=== PATIENT | male | born 1960 | race Two or more races ===

== ENCOUNTER 2017-02-26 19:19 | Inpatient (IN) | payer MEDICARE, MEDICAID ==
[~2017-02-26] VITALS: Ht 121.9 cm; Wt 50.0 kg
[2017-02-26 22:47] LABS: CARBON DIOXIDE 16 mEq/L (21-32); CHLORIDE 120 mEq/L (98-107)
[2017-02-26 22:52] LABS: TROPONIN I < 0.02 ng/mL (0.00-0.04)
[2017-02-26] MEDS ORDERED: DEXTROSE 50% WATER 50ML SYRINGE IV ONE ×2 (22:56→23:00)
[2017-02-26] MEDS ORDERED: DEXT 5%/0.45% NACL KCL 20MEQ/L 1,000 ML IV ONE (22:58)
[2017-02-26 23:08] LABS: HEMATOCRIT. 25.1 % (42.0-52.0); HEMOGLOBIN. 8.6 g/dL (14.0-18.0); MEAN CORPUSCULAR HEMOGLOBIN 30.3 pg (28.0-32.0); MEAN CORPUSCULAR VOLUME 88.9 fL (80.0-94.0); MEAN PLATELET VOLUME 7.6 fl (7.4-10.4); PLATELET 189 x1000/uL (130-400); RED BLOOD CELL COUNT 2.83 mill/uL (4.7-6.1); RED CELL DISTRIBUTION WIDTH 19.9 % (11.6-14.6)
[2017-02-26 23:13] LABS: INR 1.2; PARTIAL THROMBOPLASTIN TIME 36.2 sec (24.0-34.0); PROTHROMBIN TIME 12.1 sec
[2017-02-26 23:25] LABS: PLATELET ESTIMATE NORMAL
[2017-02-26 23:57] LABS: CLARITY URINE CLOUDY (CLEAR); COLOR URINE YELLOW (YELLOW); GLUCOSE URINE NEGATIVE (NEGATIVE); KETONES URINE NEGATIVE (NEGATIVE); LEUKOCYTE ESTERASE URINE 1+ (NEGATIVE); NITRITE URINE NEGATIVE (NEGATIVE); OCCULT BLOOD URINE 3+ (NEGATIVE); PH URINE 5.5 (4.5-8.0); PROTEIN URINE 1+ (NEGATIVE); SPECIFIC GRAVITY URINE 1.016 (1.005-1.030); UROBILINOGEN URINE 0.2 E.U./dL (0.2-1.0)
[2017-02-27] VITALS (8 sets, daily range): BP systolic 98–131; BP diastolic 49–81
[2017-02-27] MEDS ORDERED: DEXTROSE 50% WATER 50ML SYRINGE IV ONE ×3 (01:45→06:00)
[2017-02-27] MEDS ORDERED: ACETAMINOPHEN 650MG SUPP PR PRN (08:45)
[2017-02-27] MEDS ORDERED: ONDANSETRON HCL 4MG/2ML VIAL IV PRN (08:45)
[2017-02-27] MEDS ORDERED: IPRATROPIUM/ALBUTEROL 0.5-3(2.5)MG/3ML NEB INH PRN (08:45)
[2017-02-27] MEDS: MVI, ADULT NO.1 10 ML in DEXT 5%/0.45% NACL 1000ML 1,000 ML IV SCH ×2 (11:32)
[2017-02-27 12:03] LABS: HEMOGLOBIN. 9.9 g/dL (14.0-18.0); MEAN CORPUSCULAR HEMOGLOBIN 30.7 pg (28.0-32.0); MEAN CORPUSCULAR VOLUME 87.1 fL (80.0-94.0); MEAN PLATELET VOLUME 7.9 fl (7.4-10.4); PLATELET 148 x1000/uL (130-400); RED BLOOD CELL COUNT 3.21 mill/uL (4.7-6.1); RED CELL DISTRIBUTION WIDTH 18.4 % (11.6-14.6)
[2017-02-27 13:19] LABS: PLATELET ESTIMATE NORMAL
[2017-02-27 13:22] LABS: GLUCOSE URINE NEGATIVE (NEGATIVE); KETONES URINE NEGATIVE (NEGATIVE); LEUKOCYTE ESTERASE URINE 1+ (NEGATIVE); NITRITE URINE NEGATIVE (NEGATIVE); OCCULT BLOOD URINE 3+ (NEGATIVE); PH URINE 5.5 (4.5-8.0); PROTEIN URINE 1+ (NEGATIVE); SPECIFIC GRAVITY URINE 1.014 (1.005-1.030); UROBILINOGEN URINE 0.2 E.U./dL (0.2-1.0)
[2017-02-27 13:24] LABS: CLARITY URINE CLEAR (CLEAR); COLOR URINE YELLOW (YELLOW)
[2017-02-27 13:40] LABS: *AMPHETAMINES SCREEN URINE NEGATIVE (NEGATIVE); *BARBITURATES SCREEN URINE NEGATIVE (NEGATIVE); *BENZODIAZEPINES SCREEN URINE NEGATIVE (NEGATIVE); *COCAINE SCREEN URINE NEGATIVE (NEGATIVE); CANNABINOID URINE SCREEN NEGATIVE (NEGATIVE); METHADONE URINE SCREEN NEGATIVE (NEGATIVE); OPIATES URINE SCREEN NEGATIVE (NEGATIVE); PHENCYCLIDINE URINE SCREEN NEGATIVE (NEGATIVE)
[2017-02-27] MEDS ORDERED: BACL-141 PO (16:11)
[2017-02-27] MEDS ORDERED: GABA-529 PO (16:11)
[2017-02-27] MEDS ORDERED: TRAM50TA3 PO (16:11)
[2017-02-27] MEDS ORDERED: GLUC1VIA6 IJ (16:11)
[2017-02-27] MEDS ORDERED: OMEP20CA10 PO (16:11)
[2017-02-27] MEDS ORDERED: CEPH-569 PO (16:11)
[2017-02-27] MEDS ORDERED: INSU3INS6 SUBCUT (16:11)
[2017-02-27] MEDS: TRAMADOL 50MG TABLET PO PRN (18:06)
[2017-02-27] MEDS: GABAPENTIN 100MG CAPSULE PO SCH (21:31)
[2017-02-27] MEDS: DEXT 5%/0.45% NACL 1000ML 1,000 ML IV SCH (23:00)
[2017-02-28] VITALS (12 sets, daily range): BP systolic 93–133; BP diastolic 62–99
[2017-02-28] MEDS: MVI, ADULT NO.1 10 ML in DEXT 5%/0.45% NACL 1000ML 1,000 ML IV SCH ×2 (03:07)
[2017-02-28 07:14] LABS: CHLORIDE 119 mEq/L (98-107); HDL CHOLESTEROL 27 mg/dL (40-59)
[2017-02-28 07:28] LABS: CARBON DIOXIDE 17 mEq/L (21-32); LDL CHOLESTEROL 21 mg/dL (5-100); PREALBUMIN 5.7 mg/dL (20.0-40.0); TOTAL IRON BINDING CAPACITY 85 ug/dL (250-450)
[2017-02-28 08:08] LABS: HEMATOCRIT. 27.8 % (42.0-52.0); HEMOGLOBIN. 9.5 g/dL (14.0-18.0); MEAN CORPUSCULAR HEMOGLOBIN 29.7 pg (28.0-32.0); MEAN CORPUSCULAR VOLUME 86.8 fL (80.0-94.0); MEAN PLATELET VOLUME 7.9 fl (7.4-10.4); PLATELET 161 x1000/uL (130-400); RED CELL DISTRIBUTION WIDTH 18.6 % (11.6-14.6)
[2017-02-28] MEDS: GABAPENTIN 100MG CAPSULE PO SCH ×2 (09:41→21:15)
[2017-02-28] MEDS: TRAMADOL 50MG TABLET PO PRN (10:10)
[2017-02-28] MEDS ORDERED: POTASSIUM PHOS,M-BASIC-D-BASIC 30 MMOL in DEXT 5% WATER 500 ML IV SCH (11:00)
[2017-02-28] MEDS ORDERED: MAGNESIUM 4 G PREMIX 100 ML IV SCH (11:00)
[2017-02-28 11:01] LABS: PLATELET ESTIMATE NORMAL
[2017-02-28] MEDS: MICONAZOLE NITRATE 2% OINT 71GM TOP SCH (18:04)
[2017-03-01] VITALS (15 sets, daily range): BP systolic 101–133; BP diastolic 68–83
[2017-03-01] MEDS: DEXT 5%/0.45% NACL 1000ML 1,000 ML IV SCH (01:03)
[2017-03-01] MEDS: MVI, ADULT NO.1 10 ML in DEXT 5%/0.45% NACL 1000ML 1,000 ML IV SCH ×6 (03:24→16:52)
[2017-03-01] MEDS: MICONAZOLE NITRATE 2% OINT 71GM TOP SCH ×2 (08:41→22:32)
[2017-03-01] MEDS: GABAPENTIN 100MG CAPSULE PO SCH ×2 (08:42→20:59)
[2017-03-01] MEDS: TRAMADOL 50MG TABLET PO PRN ×2 (08:50→20:58)
[2017-03-02] VITALS: BP 126/91
[2017-03-02 04:00] VITALS: BP 127/93
[2017-03-02 04:13] LABS: OVA & PARASITE EXAM Final report (.)
[2017-03-02] MEDS: DEXT 5%/0.45% NACL 1000ML 1,000 ML IV SCH ×3 (04:20→17:40)
[2017-03-02] MEDS: MVI, ADULT NO.1 10 ML in DEXT 5%/0.45% NACL 1000ML 1,000 ML IV SCH ×4 (06:20→20:11)
[2017-03-02 08:00] VITALS: BP 138/99
[2017-03-02] MEDS: GABAPENTIN 100MG CAPSULE PO SCH ×2 (09:52→20:16)
[2017-03-02] MEDS: MICONAZOLE NITRATE 2% OINT 71GM TOP SCH ×2 (09:53→20:18)
[2017-03-02] MEDS: TRAMADOL 50MG TABLET PO PRN ×2 (09:54→20:17)
[2017-03-02 12:00] VITALS: BP 113/81
[2017-03-02 16:00] VITALS: BP 132/97
[2017-03-02 20:12] VITALS: BP 136/96
[2017-03-03] VITALS: BP 129/99
[2017-03-03] MEDS: TRAMADOL 50MG TABLET PO PRN ×2 (03:46→15:12)
[2017-03-03 04:00] VITALS: BP 126/78
[2017-03-03 08:00] VITALS: BP 133/94
[2017-03-03] MEDS: GABAPENTIN 100MG CAPSULE PO SCH ×2 (08:49→21:34)
[2017-03-03] MEDS: DEXT 5%/0.45% NACL 1000ML 1,000 ML IV SCH ×2 (08:49→20:20)
[2017-03-03] MEDS: OMEPRAZOLE 20MG CAPSULE EXTENDED RELEASE PO SCH ×2 (08:49→21:33)
[2017-03-03] MEDS: MICONAZOLE NITRATE 2% OINT 71GM TOP SCH ×2 (08:50→21:34)
[2017-03-03] MEDS: MVI, ADULT NO.1 10 ML in DEXT 5%/0.45% NACL 1000ML 1,000 ML IV SCH ×4 (08:53→22:44)
[2017-03-03] MEDS ORDERED: POTASSIUM PHOS,M-BASIC-D-BASIC 30 MMOL in DEXT 5% WATER 500 ML IV ONE (09:00)
[2017-03-03] MEDS: POLYVINYL ALCOHOL OPHTH DROPS 15ML BOTHEYE SCH ×3 (11:49→17:30)
[2017-03-03 12:04] VITALS: BP 127/86
[2017-03-03] MEDS ORDERED: MAGNESIUM 4 G PREMIX 100 ML IV ONE (14:00)
[2017-03-03 16:00] VITALS: BP 123/79
[2017-03-03] MEDS: ALBUMIN HUMAN 25GM/100ML (25%) IV SCH (17:30)
[2017-03-03 20:00] VITALS: BP 126/91
[2017-03-04] VITALS: BP 108/73
[2017-03-04] MEDS: ALBUMIN HUMAN 25GM/100ML (25%) IV SCH ×3 (03:55→21:46)
[2017-03-04 04:00] VITALS: BP 118/74
[2017-03-04 06:11] LABS: BASOPHILS % 0.2 % (0.0-2.0); EOSINOPHILS % 1.5 % (0.0-5.0); HEMATOCRIT. 24.9 % (42.0-52.0); HEMOGLOBIN. 8.7 g/dL (14.0-18.0); LYMPHOCYTES % 8.4 % (20.0-50.0); MEAN CORPUSCULAR HEMOGLOBIN 30.5 pg (28.0-32.0); MEAN CORPUSCULAR VOLUME 87.7 fL (80.0-94.0); MEAN PLATELET VOLUME 7.7 fl (7.4-10.4); MONOCYTES % 5.3 % (2.0-8.0); NEUTROPHILS % 84.6 % (40.0-76.0); PLATELET 180 x1000/uL (130-400); RED BLOOD CELL COUNT 2.84 mill/uL (4.7-6.1); RED CELL DISTRIBUTION WIDTH 18.5 % (11.6-14.6)
[2017-03-04] MEDS: OMEPRAZOLE 20MG CAPSULE EXTENDED RELEASE PO SCH (08:28)
[2017-03-04] MEDS: GABAPENTIN 100MG CAPSULE PO SCH ×2 (08:28→21:46)
[2017-03-04] MEDS: MICONAZOLE NITRATE 2% OINT 71GM TOP SCH ×2 (08:29→21:46)
[2017-03-04] MEDS: POLYVINYL ALCOHOL OPHTH DROPS 15ML BOTHEYE SCH ×3 (08:29→17:27)
[2017-03-04] MEDS: TRAMADOL 50MG TABLET PO PRN ×2 (08:30→16:11)
[2017-03-04 08:55] VITALS: BP 116/91
[2017-03-04] MEDS: DEXT 5%/0.45% NACL 1000ML 1,000 ML IV SCH (09:40)
[2017-03-04 10:50] LABS: CARBON DIOXIDE 20 mEq/L (21-32); CHLORIDE 114 mEq/L (98-107); PHOSPHORUS 2.7 mg/dL (2.5-4.9); T4 FREE 0.99 ng/dL (0.76-1.46)
[2017-03-04] MEDS: MVI, ADULT NO.1 10 ML in DEXT 5%/0.45% NACL 1000ML 1,000 ML IV SCH ×2 (11:11)
[2017-03-04 12:14] VITALS: BP 138/93
[2017-03-04 16:18] VITALS: BP 139/96
[2017-03-04 20:08] VITALS: BP 131/89
[2017-03-04] MEDS ORDERED: FLUCONAZOLE 100 MG/50ML BAG 50 ML IV SCH (23:00)
[2017-03-05] VITALS (12 sets, daily range): BP systolic 118–158; BP diastolic 77–96
[2017-03-05] MEDS: DEXT 5%/0.45% NACL 1000ML 1,000 ML IV SCH ×2 (02:55→12:20)
[2017-03-05 06:36] LABS: BASOPHILS % 0.3 % (0.0-2.0); EOSINOPHILS % 1.6 % (0.0-5.0); HEMATOCRIT. 21.3 % (42.0-52.0); HEMOGLOBIN. 7.5 g/dL (14.0-18.0); LYMPHOCYTES % 10.3 % (20.0-50.0); MEAN CORPUSCULAR HEMOGLOBIN 30.4 pg (28.0-32.0); MEAN CORPUSCULAR VOLUME 86.8 fL (80.0-94.0); MEAN PLATELET VOLUME 7.7 fl (7.4-10.4); MONOCYTES % 7.5 % (2.0-8.0); NEUTROPHILS % 80.3 % (40.0-76.0); PLATELET 146 x1000/uL (130-400); RED BLOOD CELL COUNT 2.46 mill/uL (4.7-6.1); RED CELL DISTRIBUTION WIDTH 18.9 % (11.6-14.6)
[2017-03-05] MEDS ORDERED: FAMOTIDINE 20MG TABLET PO SCH (09:00)
[2017-03-05] MEDS: POLYVINYL ALCOHOL OPHTH DROPS 15ML BOTHEYE SCH ×3 (09:02→17:55)
[2017-03-05] MEDS: GABAPENTIN 100MG CAPSULE PO SCH ×2 (09:02→21:43)
[2017-03-05] MEDS: MICONAZOLE NITRATE 2% OINT 71GM TOP SCH ×2 (09:04→21:44)
[2017-03-05] MEDS: ALBUMIN HUMAN 25GM/100ML (25%) IV SCH (12:46)
[2017-03-05] MEDS ORDERED: MEROPENEM XX SCH (14:15)
[2017-03-05] MEDS: MVI, ADULT NO.1 10 ML in DEXT 5%/0.45% NACL 1000ML 1,000 ML IV SCH ×2 (15:08)
[2017-03-05] MEDS: MEROPENEM 500MG in NORMAL SALINE 50ML IV SCH (15:11)
[2017-03-05] MEDS ORDERED: [UNRECOGNIZED DRUG - CODE] PO (16:06)
[2017-03-05] MEDS: TRAMADOL 50MG TABLET PO PRN (17:54)
[2017-03-05] MEDS: OMEPRAZOLE 20MG CAPSULE EXTENDED RELEASE PO SCH (17:54)
[2017-03-06] VITALS (7 sets, daily range): BP systolic 99–158; BP diastolic 58–86
[2017-03-06] MEDS: TRAMADOL 50MG TABLET PO PRN ×3 (00:09→21:19)
[2017-03-06] MEDS: ALBUMIN HUMAN 25GM/100ML (25%) IV SCH (02:33)
[2017-03-06] MEDS: FLUCONAZOLE 100MG/50ML in BAG IV SCH ×2 (03:27→22:37)
[2017-03-06] MEDS ORDERED: ACETAMINOPHEN 325MG TABLET PO PRN (03:30)
[2017-03-06] MEDS: MEROPENEM 500MG in NORMAL SALINE 50ML IV SCH ×2 (04:08→13:46)
[2017-03-06 05:55] LABS: HEMOGLOBIN. 9.8 g/dL (14.0-18.0); MEAN CORPUSCULAR VOLUME 88.2 fL (80.0-94.0); MEAN PLATELET VOLUME 7.2 fl (7.4-10.4); PLATELET 99 x1000/uL (130-400); RED BLOOD CELL COUNT 3.28 mill/uL (4.7-6.1); RED CELL DISTRIBUTION WIDTH 16.1 % (11.6-14.6)
[2017-03-06 06:43] LABS: CHLORIDE 112 mEq/L (98-107)
[2017-03-06 07:05] LABS: CARBON DIOXIDE 19 mEq/L (21-32); CREATINE KINASE MB FRACTION 1.8 ng/mL (0.5-3.6); HDL CHOLESTEROL 28 mg/dL (40-59); LDL CHOLESTEROL 18 mg/dL (5-100); PHOSPHORUS 1.4 mg/dL (2.5-4.9)
[2017-03-06] MEDS: GABAPENTIN 100MG CAPSULE PO SCH ×2 (09:10→21:16)
[2017-03-06] MEDS: POLYVINYL ALCOHOL OPHTH DROPS 15ML BOTHEYE SCH ×3 (09:10→18:21)
[2017-03-06] MEDS: OMEPRAZOLE 20MG CAPSULE EXTENDED RELEASE PO SCH ×2 (09:10→18:11)
[2017-03-06] MEDS: MICONAZOLE NITRATE 2% OINT 71GM TOP SCH ×2 (09:10→21:17)
[2017-03-06] MEDS: ALPRAZOLAM 0.5 MG TABLET PO PRN (09:13)
[2017-03-06] MEDS ORDERED: MAGNESIUM 4 G PREMIX 100 ML IV ONE (09:30)
[2017-03-06 09:55] LABS: TROPONIN I 0.02 ng/mL (0.00-0.04)
[2017-03-06] MEDS ORDERED: POTASSIUM PHOS,M-BASIC-D-BASIC 40 MMOL in DEXT 5% WATER 500 ML IV ONE (10:00)
[2017-03-06] MEDS: POTASSIUM BICARB/CIT ACID 25 MEQ TABLET.EFF PO SCH ×2 (10:13→18:11)
[2017-03-06 10:47] LABS: PLATELET ESTIMATE DECREASED
[2017-03-06] MEDS: LIPASE/PROTEASE/AMYLASE 4,200/10,000/17,5000 UNITS CAP DR PO SCH ×2 (13:46→18:11)
[2017-03-06 15:55] LABS: CREATINE KINASE 29 IU/L (39-308); CREATINE KINASE MB FRACTION 1.8 ng/mL (0.5-3.6); TROPONIN I < 0.02 ng/mL (0.00-0.04)
[2017-03-06] MEDS: MVI, ADULT NO.1 10 ML in DEXT 5%/0.45% NACL 1000ML 1,000 ML IV SCH ×2 (21:16)
[2017-03-06 23:49] LABS: CREATINE KINASE 30 IU/L (39-308); CREATINE KINASE MB FRACTION 2.2 ng/mL (0.5-3.6); TROPONIN I < 0.02 ng/mL (0.00-0.04)
[2017-03-07] VITALS (7 sets, daily range): BP systolic 129–141; BP diastolic 81–96
[2017-03-07] MEDS: MEROPENEM 500MG in NORMAL SALINE 50ML IV SCH ×2 (01:51→13:40)
[2017-03-07 06:08] LABS: HEMATOCRIT. 28.5 % (42.0-52.0); HEMOGLOBIN. 9.8 g/dL (14.0-18.0); MEAN CORPUSCULAR HEMOGLOBIN 30.1 pg (28.0-32.0); MEAN CORPUSCULAR VOLUME 87.3 fL (80.0-94.0); PLATELET 101 x1000/uL (130-400); RED BLOOD CELL COUNT 3.26 mill/uL (4.7-6.1); RED CELL DISTRIBUTION WIDTH 16.4 % (11.6-14.6)
[2017-03-07 06:47] LABS: CARBON DIOXIDE 18 mEq/L (21-32); CHLORIDE 115 mEq/L (98-107); PHOSPHORUS 2.6 mg/dL (2.5-4.9)
[2017-03-07] MEDS: TRAMADOL 50MG TABLET PO PRN (08:33)
[2017-03-07] MEDS: ALPRAZOLAM 0.5 MG TABLET PO PRN (08:33)
[2017-03-07] MEDS: POTASSIUM BICARB/CIT ACID 25 MEQ TABLET.EFF PO SCH ×2 (08:33→17:31)
[2017-03-07] MEDS: LIPASE/PROTEASE/AMYLASE 4,200/10,000/17,5000 UNITS CAP DR PO SCH ×3 (08:33→17:32)
[2017-03-07] MEDS: GABAPENTIN 100MG CAPSULE PO SCH ×2 (08:33→21:56)
[2017-03-07] MEDS: OMEPRAZOLE 20MG CAPSULE EXTENDED RELEASE PO SCH ×2 (08:33→17:31)
[2017-03-07] MEDS: MICONAZOLE NITRATE 2% OINT 71GM TOP SCH ×2 (08:34→21:57)
[2017-03-07] MEDS: POLYVINYL ALCOHOL OPHTH DROPS 15ML BOTHEYE SCH ×3 (08:34→17:34)
[2017-03-07 13:21] LABS: GLUCOSE URINE NEGATIVE (NEGATIVE); KETONES URINE NEGATIVE (NEGATIVE); LEUKOCYTE ESTERASE URINE 3+ (NEGATIVE); NITRITE URINE POSITIVE (NEGATIVE); OCCULT BLOOD URINE 3+ (NEGATIVE); PH URINE 5.5 (4.5-8.0); PROTEIN URINE 2+ (NEGATIVE); SPECIFIC GRAVITY URINE 1.014 (1.005-1.030); UROBILINOGEN URINE 0.2 E.U./dL (0.2-1.0)
[2017-03-07 13:28] LABS: CLARITY URINE CLOUDY (CLEAR); COLOR URINE YELLOW (YELLOW)
[2017-03-07] MEDS: DEXT 5%/0.45% NACL 1000ML 1,000 ML IV SCH (17:32)
[2017-03-07 18:16] LABS: HEMATOCRIT. 33.5 % (42.0-52.0); HEMOGLOBIN. 11.4 g/dL (14.0-18.0); MEAN CORPUSCULAR HEMOGLOBIN 29.8 pg (28.0-32.0); MEAN CORPUSCULAR VOLUME 87.7 fL (80.0-94.0); MEAN PLATELET VOLUME 8.5 fl (7.4-10.4); PLATELET 108 x1000/uL (130-400); RED BLOOD CELL COUNT 3.83 mill/uL (4.7-6.1); RED CELL DISTRIBUTION WIDTH 16.6 % (11.6-14.6)
[2017-03-07 18:25] LABS: CARBON DIOXIDE 19 mEq/L (21-32); CHLORIDE 114 mEq/L (98-107)
[2017-03-07 18:29] LABS: PHOSPHORUS 2.3 mg/dL (2.5-4.9)
[2017-03-07 20:45] LABS: PLATELET ESTIMATE DECREASED
[2017-03-07 20:57] LABS: PLATELET ESTIMATE DECREASED
[2017-03-08] VITALS: BP 138/95
[2017-03-08] MEDS: AMLODIPINE 10MG TABLET PO SCH ×2 (00:03→09:38)
[2017-03-08] MEDS: FLUCONAZOLE 100MG/50ML in BAG IV SCH (00:04)
[2017-03-08] MEDS: TRAMADOL 50MG TABLET PO PRN ×3 (00:05→17:04)
[2017-03-08] MEDS: MEROPENEM 500MG in NORMAL SALINE 50ML IV SCH ×2 (03:33→13:53)
[2017-03-08 06:26] LABS: HEMOGLOBIN. 10.5 g/dL (14.0-18.0); MEAN CORPUSCULAR HEMOGLOBIN 30.3 pg (28.0-32.0); MEAN CORPUSCULAR VOLUME 87.1 fL (80.0-94.0); MEAN PLATELET VOLUME 8.3 fl (7.4-10.4); PLATELET 100 x1000/uL (130-400); RED BLOOD CELL COUNT 3.45 mill/uL (4.7-6.1)
[2017-03-08 07:31] LABS: CARBON DIOXIDE 20 mEq/L (21-32); CHLORIDE 116 mEq/L (98-107)
[2017-03-08 08:00] VITALS: BP 114/68
[2017-03-08] MEDS: POLYVINYL ALCOHOL OPHTH DROPS 15ML BOTHEYE SCH ×3 (09:00→16:54)
[2017-03-08] MEDS: LIPASE/PROTEASE/AMYLASE 4,200/10,000/17,5000 UNITS CAP DR PO SCH ×4 (09:37→21:14)
[2017-03-08] MEDS: OMEPRAZOLE 20MG CAPSULE EXTENDED RELEASE PO SCH ×2 (09:37→16:54)
[2017-03-08] MEDS: POTASSIUM BICARB/CIT ACID 25 MEQ TABLET.EFF PO SCH ×2 (09:37→16:54)
[2017-03-08] MEDS: GABAPENTIN 100MG CAPSULE PO SCH ×2 (09:37→21:14)
[2017-03-08] MEDS: MICONAZOLE NITRATE 2% OINT 71GM TOP SCH (09:39)
[2017-03-08] MEDS: DEXT 5%/0.45% NACL 1000ML 1,000 ML IV SCH (09:39)
[2017-03-08 12:00] VITALS: BP 122/88
[2017-03-08 13:58] LABS: PLATELET ESTIMATE DECREASED
[2017-03-08] MEDS ORDERED: MAGNESIUM 4 G PREMIX 100 ML IV NR (14:00)
[2017-03-08] MEDS ORDERED: POTASSIUM PHOS,M-BASIC-D-BASIC 30 MMOL in SODIUM CHLORIDE 0.9% 500 ML IV NR (14:00)
[2017-03-08 15:25] LABS: CLARITY URINE TURBID (CLEAR); COLOR URINE ORANGE (YELLOW); GLUCOSE URINE 1+ (NEGATIVE); KETONES URINE NEGATIVE (NEGATIVE); LEUKOCYTE ESTERASE URINE 3+ (NEGATIVE); NITRITE URINE NEGATIVE (NEGATIVE); OCCULT BLOOD URINE 3+ (NEGATIVE); PH URINE 5.5 (4.5-8.0); PROTEIN URINE 1+ (NEGATIVE); SPECIFIC GRAVITY URINE 1.011 (1.005-1.030); UROBILINOGEN URINE 0.2 E.U./dL (0.2-1.0)
[2017-03-08] MEDS ORDERED: FUROSEMIDE 20MG/2ML VIAL IVP PRN (15:45)
[2017-03-08 16:00] VITALS: BP 123/88
[2017-03-08 20:08] VITALS: BP 128/88
[2017-03-08 20:48] VITALS: BP 128/88
[2017-03-08] MEDS: ALPRAZOLAM 0.5 MG TABLET PO PRN (22:44)
[2017-03-09] MEDS ORDERED: FLUCONAZOLE 100MG TABLET PO SCH (09:00)
[2017-03-09] MEDS ORDERED: LEVOFLOXACIN 500MG TABLET PO SCH (11:00)
[2017-03-09] MEDS ORDERED: CEPHALEXIN 500MG CAPSULE PO SCH (17:00)
== END 2017-03-08 22:35 | DRG 871 ==
LOC: ER 19:49 → 5EST 23:44 → EDBEDREQ 23:46 → EDBEDREQSVC 02-27 03:45 → 7WST 03-01 23:50
PROVIDERS: ADMIT Internal Medicine; ATTEND Internal Medicine
PROC: 30233N1 Transfusion of Nonautologous Red Blood Cells into Peripheral Vein, Percutaneous Approach (ICD-10-PCS; principal; 2017-02-27)
DX: A41.9 Sepsis, unspecified organism (principal); N18.6 End stage renal disease; E43 Unspecified severe protein-calorie malnutrition; I85.01 Esophageal varices with bleeding; K76.6 Portal hypertension; R64 Cachexia; I25.110 Atherosclerotic heart disease of native coronary artery with unstable angina pectoris; J90 Pleural effusion, not elsewhere classified; I12.0 Hypertensive chronic kidney disease with stage 5 chronic kidney disease or end stage renal disease; K70.31 Alcoholic cirrhosis of liver with ascites; E11.649 Type 2 diabetes mellitus with hypoglycemia without coma; R33.9 Retention of urine, unspecified; N32.0 Bladder-neck obstruction; D64.9 Anemia, unspecified; E11.51 Type 2 diabetes mellitus with diabetic peripheral angiopathy without gangrene; K59.00 Constipation, unspecified; E11.22 Type 2 diabetes mellitus with diabetic chronic kidney disease; B96.89 Other specified bacterial agents as the cause of diseases classified elsewhere; Z89.512 Acquired absence of left leg below knee; Z89.511 Acquired absence of right leg below knee; Z68.33 Body mass index [BMI] 33.0-33.9, adult; Z87.891 Personal history of nicotine dependence; I73.9 Peripheral vascular disease, unspecified
CPT/HCPCS: 36415; 36430; 51702; 71010; 80048; 80053; 80061; 80069; 80076; 80305; 81001; 82248; 82550; 82553; 82962; 83036; 83540; 83550; 83605; 83690; 83735; 84100; 84134; 84439; 84443; 84484; 84550; 85025; 85610; 85730; 86677; 86850; 86900; 86920; 87040; 87045; 87070; 87077; 87086; 87177; 87186; 87205; 87209; 87449; 87493; 92610; 93005; 93970; 94664; 99285; A6261; C1893; J1450; J2185; J3475; J3490; J7040; J7050; J7060; J7620; P9016; P9047; A4315

== ENCOUNTER 2017-05-18 12:51 | Inpatient (IN) | payer MEDICARE, MEDICAID ==
[~2017-05-18] VITALS: Ht 167.6 cm; Wt 54.4 kg
[~2017-05-18 12:51] MED LIST: BACL-141 PO; CEPH-569 PO; GABA-529 PO; GLUC1VIA6 IJ; INSU3INS6 SUBCUT; OMEP20CA10 PO; TRAM50TA3 PO; [UNRECOGNIZED DRUG - CODE] PO
[2017-05-18 14:19] VITALS: BP 117/63
[2017-05-18 16:33] VITALS: BP 98/58
[2017-05-18] MEDS ORDERED: DEXTROSE 50% WATER 50ML SYRINGE IV PRN (17:00)
[2017-05-18] MEDS: BLOOD SUGAR DIAGNOSTIC STRIP TEST SCH ×2 (17:02→21:18)
[2017-05-18] MEDS: BACLOFEN 10MG TABLET PO SCH ×2 (17:54→21:00)
[2017-05-18] MEDS: GABAPENTIN 100MG CAPSULE PO SCH ×2 (17:55→21:00)
[2017-05-18] MEDS: INSULIN LISPRO 100 UNITS/ML SUBCUT SCH ×2 (17:56→22:20)
[2017-05-18] MEDS: TRAMADOL 50MG TABLET PO PRN (18:15)
[2017-05-18 20:00] VITALS: BP 95/58
[2017-05-18 20:52] LABS: BASOPHILS % 0.6 % (0.0-2.0); EOSINOPHILS % 1.8 % (0.0-5.0); MEAN CORPUSCULAR HEMOGLOBIN 32.6 pg (28.0-32.0); MEAN PLATELET VOLUME 7.6 fl (7.4-10.4); MONOCYTES % 11.1 % (2.0-8.0); NEUTROPHILS % 68.5 % (40.0-76.0); PLATELET 278 x1000/uL (130-400); RED BLOOD CELL COUNT 1.85 mill/uL (4.7-6.1); RED CELL DISTRIBUTION WIDTH 17.4 % (11.6-14.6)
[2017-05-18 20:54] LABS: HEMATOCRIT. 17.9 % (42.0-52.0)
[2017-05-18 22:01] VITALS: BP 111/65
[2017-05-18 22:12] LABS: CARBON DIOXIDE 13 mEq/L (21-32); CHLORIDE 109 mEq/L (98-107); HDL CHOLESTEROL 47 mg/dL (40-59); LDL CHOLESTEROL 45 mg/dL (5-100); PHOSPHORUS 6.1 mg/dL (2.5-4.9); TOTAL IRON BINDING CAPACITY 206 ug/dL (250-450)
[2017-05-18 22:19] VITALS: BP 110/69
[2017-05-18] MEDS: INSULIN DETEMIR UD 100 UNITS/ML SYR SUBCUT SCH (22:20)
[2017-05-18 23:19] VITALS: BP 123/72
[2017-05-19] VITALS (10 sets, daily range): BP systolic 118–146; BP diastolic 68–81
[2017-05-19 04:14] LABS: CLARITY URINE CLOUDY (CLEAR); COLOR URINE YELLOW (YELLOW); GLUCOSE URINE NEGATIVE (NEGATIVE); KETONES URINE NEGATIVE (NEGATIVE); LEUKOCYTE ESTERASE URINE 3+ (NEGATIVE); NITRITE URINE NEGATIVE (NEGATIVE); OCCULT BLOOD URINE 3+ (NEGATIVE); PROTEIN URINE 1+ (NEGATIVE); SPECIFIC GRAVITY URINE 1.013 (1.005-1.030); UROBILINOGEN URINE 0.2 E.U./dL (0.2-1.0)
[2017-05-19] MEDS: TRAMADOL 50MG TABLET PO PRN ×3 (04:35→18:30)
[2017-05-19] MEDS: BLOOD SUGAR DIAGNOSTIC STRIP TEST SCH ×4 (05:41→20:26)
[2017-05-19] MEDS: INSULIN LISPRO 100 UNITS/ML SUBCUT SCH ×4 (05:48→20:33)
[2017-05-19] MEDS: OMEPRAZOLE 20MG CAPSULE EXTENDED RELEASE PO SCH ×2 (05:48→18:29)
[2017-05-19 07:55] LABS: HEMOGLOBIN 9.6 g/dL (14.0-18.0)
[2017-05-19] MEDS: BACLOFEN 10MG TABLET PO SCH ×2 (09:16→20:31)
[2017-05-19] MEDS: GABAPENTIN 100MG CAPSULE PO SCH ×2 (09:16→20:32)
[2017-05-19 12:59] LABS: BASOPHILS % 0.5 % (0.0-2.0); EOSINOPHILS % 0.4 % (0.0-5.0); HEMATOCRIT. 27.9 % (42.0-52.0); HEMOGLOBIN. 9.5 g/dL (14.0-18.0); LYMPHOCYTES % 8.5 % (20.0-50.0); MEAN CORPUSCULAR VOLUME 91.1 fL (80.0-94.0); MEAN PLATELET VOLUME 7.3 fl (7.4-10.4); MONOCYTES % 6.4 % (2.0-8.0); NEUTROPHILS % 84.2 % (40.0-76.0); PLATELET 293 x1000/uL (130-400); RED BLOOD CELL COUNT 3.06 mill/uL (4.7-6.1); RED CELL DISTRIBUTION WIDTH 17.3 % (11.6-14.6)
[2017-05-19] MEDS: INSULIN DETEMIR UD 100 UNITS/ML SYR SUBCUT SCH (21:16)
[2017-05-20] VITALS: BP 132/82
[2017-05-20 04:00] VITALS: BP 147/85
[2017-05-20] MEDS: BLOOD SUGAR DIAGNOSTIC STRIP TEST SCH ×4 (06:12→20:30)
[2017-05-20] MEDS: OMEPRAZOLE 20MG CAPSULE EXTENDED RELEASE PO SCH (06:15)
[2017-05-20] MEDS: INSULIN LISPRO 100 UNITS/ML SUBCUT SCH ×4 (06:41→20:30)
[2017-05-20 07:29] LABS: AMMONIA 34 uMol/L (<32)
[2017-05-20 07:49] LABS: BASOPHILS % 0.4 % (0.0-2.0); EOSINOPHILS % 1.2 % (0.0-5.0); HEMATOCRIT. 26.7 % (42.0-52.0); HEMOGLOBIN. 9.2 g/dL (14.0-18.0); LYMPHOCYTES % 11.6 % (20.0-50.0); MEAN CORPUSCULAR HEMOGLOBIN 31.2 pg (28.0-32.0); MEAN CORPUSCULAR VOLUME 91.1 fL (80.0-94.0); MEAN PLATELET VOLUME 7.2 fl (7.4-10.4); MONOCYTES % 8.3 % (2.0-8.0); NEUTROPHILS % 78.5 % (40.0-76.0); PLATELET 287 x1000/uL (130-400); RED BLOOD CELL COUNT 2.93 mill/uL (4.7-6.1); RED CELL DISTRIBUTION WIDTH 17.1 % (11.6-14.6)
[2017-05-20 08:00] VITALS: BP 157/88
[2017-05-20] MEDS: GABAPENTIN 100MG CAPSULE PO SCH ×2 (08:02→20:28)
[2017-05-20] MEDS: TRAMADOL 50MG TABLET PO PRN ×2 (08:03→20:27)
[2017-05-20] MEDS: BACLOFEN 10MG TABLET PO SCH ×2 (08:03→20:28)
[2017-05-20 12:00] VITALS: BP 144/100
[2017-05-20] MEDS ORDERED: DIATR MEGLU/DIATRIZOATE SOLN 30ML PO SCH (12:45)
[2017-05-20 16:00] VITALS: BP 170/82
[2017-05-20] MEDS: SODIUM CHLORIDE 0.9% 1,000 ML IV SCH (18:36)
[2017-05-20] MEDS: FERROUS SULFATE 325MG TABLET PO SCH (18:36)
[2017-05-20] MEDS: CITRIC ACID/SODIUM CITRATE SOLN 15ML UDC PO SCH (18:36)
[2017-05-20 20:00] VITALS: BP 133/76
[2017-05-20] MEDS: RISPERIDONE 0.5MG TABLET PO SCH (20:28)
[2017-05-20] MEDS: INSULIN DETEMIR UD 100 UNITS/ML SYR SUBCUT SCH (21:11)
[2017-05-20 22:39] LABS: CLARITY URINE TURBID (CLEAR); COLOR URINE YELLOW (YELLOW); GLUCOSE URINE NEGATIVE (NEGATIVE); KETONES URINE NEGATIVE (NEGATIVE); LEUKOCYTE ESTERASE URINE 3+ (NEGATIVE); NITRITE URINE NEGATIVE (NEGATIVE); OCCULT BLOOD URINE 3+ (NEGATIVE); PROTEIN URINE 2+ (NEGATIVE); SPECIFIC GRAVITY URINE 1.015 (1.005-1.030); UROBILINOGEN URINE 0.2 E.U./dL (0.2-1.0)
[2017-05-21] VITALS: BP 129/79
[2017-05-21 04:00] VITALS: BP 125/75
[2017-05-21] MEDS: BLOOD SUGAR DIAGNOSTIC STRIP TEST SCH ×4 (06:43→21:15)
[2017-05-21] MEDS: FERROUS SULFATE 325MG TABLET PO SCH ×3 (06:46→17:13)
[2017-05-21] MEDS: INSULIN LISPRO 100 UNITS/ML SUBCUT SCH ×4 (06:48→21:27)
[2017-05-21 07:32] LABS: BASOPHILS % 0.3 % (0.0-2.0); EOSINOPHILS % 0.8 % (0.0-5.0); HEMATOCRIT. 26.2 % (42.0-52.0); HEMOGLOBIN. 8.9 g/dL (14.0-18.0); LYMPHOCYTES % 14.3 % (20.0-50.0); MEAN CORPUSCULAR HEMOGLOBIN 31.1 pg (28.0-32.0); MONOCYTES % 7.4 % (2.0-8.0); NEUTROPHILS % 77.2 % (40.0-76.0); PLATELET 260 x1000/uL (130-400); RED BLOOD CELL COUNT 2.88 mill/uL (4.7-6.1); RED CELL DISTRIBUTION WIDTH 17.2 % (11.6-14.6)
[2017-05-21 08:00] VITALS: BP 165/88
[2017-05-21 08:13] LABS: CARBON DIOXIDE 15 mEq/L (21-32); CHLORIDE 110 mEq/L (98-107); PHOSPHORUS 4.6 mg/dL (2.5-4.9)
[2017-05-21] MEDS: SODIUM CHLORIDE 0.9% 1,000 ML IV SCH (08:40)
[2017-05-21] MEDS: GABAPENTIN 100MG CAPSULE PO SCH ×2 (08:41→21:24)
[2017-05-21] MEDS: FAMOTIDINE 20MG TABLET PO SCH (08:41)
[2017-05-21] MEDS: BACLOFEN 10MG TABLET PO SCH ×2 (08:41→21:24)
[2017-05-21] MEDS: CITRIC ACID/SODIUM CITRATE SOLN 15ML UDC PO SCH ×3 (08:42→17:13)
[2017-05-21] MEDS: TRAMADOL 50MG TABLET PO PRN ×2 (08:46→21:24)
[2017-05-21 16:08] VITALS: BP 190/95
[2017-05-21 16:32] VITALS: BP 155/91
[2017-05-21 20:23] VITALS: BP 172/95
[2017-05-21] MEDS: RISPERIDONE 0.5MG TABLET PO SCH (21:24)
[2017-05-21] MEDS: FUROSEMIDE 40MG/4ML VIAL IVP PRN (21:24)
[2017-05-21] MEDS: INSULIN DETEMIR UD 100 UNITS/ML SYR SUBCUT SCH (21:27)
[2017-05-22] VITALS (7 sets, daily range): BP systolic 118–163; BP diastolic 60–83
[2017-05-22 05:51] LABS: BASOPHILS % 0.8 % (0.0-2.0); EOSINOPHILS % 0.8 % (0.0-5.0); HEMATOCRIT. 25.2 % (42.0-52.0); HEMOGLOBIN. 8.5 g/dL (14.0-18.0); MEAN CORPUSCULAR HEMOGLOBIN 30.7 pg (28.0-32.0); MEAN CORPUSCULAR VOLUME 90.8 fL (80.0-94.0); MEAN PLATELET VOLUME 7.2 fl (7.4-10.4); MONOCYTES % 9.3 % (2.0-8.0); NEUTROPHILS % 71.1 % (40.0-76.0); PLATELET 267 x1000/uL (130-400); RED BLOOD CELL COUNT 2.78 mill/uL (4.7-6.1); RED CELL DISTRIBUTION WIDTH 16.9 % (11.6-14.6)
[2017-05-22] MEDS: BLOOD SUGAR DIAGNOSTIC STRIP TEST SCH ×4 (06:11→20:56)
[2017-05-22] MEDS: INSULIN LISPRO 100 UNITS/ML SUBCUT SCH ×4 (06:12→21:41)
[2017-05-22 06:29] LABS: CARBON DIOXIDE 19 mEq/L (21-32); CHLORIDE 114 mEq/L (98-107)
[2017-05-22] MEDS: FAMOTIDINE 20MG TABLET PO SCH (08:54)
[2017-05-22] MEDS: GABAPENTIN 100MG CAPSULE PO SCH ×2 (08:54→21:40)
[2017-05-22] MEDS: CITRIC ACID/SODIUM CITRATE SOLN 15ML UDC PO SCH ×3 (08:54→16:44)
[2017-05-22] MEDS: BACLOFEN 10MG TABLET PO SCH ×2 (08:54→21:40)
[2017-05-22] MEDS: FERROUS SULFATE 325MG TABLET PO SCH ×3 (08:54→16:44)
[2017-05-22] MEDS ORDERED: MAGNESIUM CITRATE 300ML SOLUTION PO PRN (15:00)
[2017-05-22] MEDS: TRAMADOL 50MG TABLET PO PRN (18:14)
[2017-05-22] MEDS ORDERED: ACETAMINOPHEN 325MG TABLET PO PRN (19:30)
[2017-05-22 20:44] LABS: AMMONIA 42 uMol/L (<32)
[2017-05-22] MEDS: RISPERIDONE 0.5MG TABLET PO SCH (21:00)
[2017-05-22] MEDS: INSULIN DETEMIR UD 100 UNITS/ML SYR SUBCUT SCH (21:42)
[2017-05-23 00:31] LABS: *AMPHETAMINES SCREEN URINE NEGATIVE (NEGATIVE); *BARBITURATES SCREEN URINE NEGATIVE (NEGATIVE); *BENZODIAZEPINES SCREEN URINE NEGATIVE (NEGATIVE); *COCAINE SCREEN URINE NEGATIVE (NEGATIVE); CANNABINOID URINE SCREEN NEGATIVE (NEGATIVE); METHADONE URINE SCREEN NEGATIVE (NEGATIVE); OPIATES URINE SCREEN NEGATIVE (NEGATIVE); PHENCYCLIDINE URINE SCREEN NEGATIVE (NEGATIVE)
[2017-05-23 02:30] LABS: CLARITY URINE TURBID (CLEAR); COLOR URINE YELLOW (YELLOW); GLUCOSE URINE TRACE (NEGATIVE); KETONES URINE NEGATIVE (NEGATIVE); LEUKOCYTE ESTERASE URINE 3+ (NEGATIVE); NITRITE URINE NEGATIVE (NEGATIVE); OCCULT BLOOD URINE 3+ (NEGATIVE); PROTEIN URINE 2+ (NEGATIVE); SPECIFIC GRAVITY URINE 1.016 (1.005-1.030); UROBILINOGEN URINE 0.2 E.U./dL (0.2-1.0)
[2017-05-23 04:00] VITALS: BP 160/89
[2017-05-23] MEDS: FUROSEMIDE 40MG/4ML VIAL IVP PRN (05:38)
[2017-05-23] MEDS: BLOOD SUGAR DIAGNOSTIC STRIP TEST SCH ×2 (06:02→12:07)
[2017-05-23] MEDS: INSULIN LISPRO 100 UNITS/ML SUBCUT SCH ×2 (06:14→12:08)
[2017-05-23] MEDS ORDERED: AMLODIPINE 5MG TABLET PO SCH (07:00)
[2017-05-23] MEDS ORDERED: FUROSEMIDE 20MG/2ML VIAL IVP SCH (07:00)
[2017-05-23 07:03] LABS: BASOPHILS % 0.6 % (0.0-2.0); EOSINOPHILS % 0.8 % (0.0-5.0); HEMATOCRIT. 24.8 % (42.0-52.0); HEMOGLOBIN. 8.4 g/dL (14.0-18.0); LYMPHOCYTES % 13.9 % (20.0-50.0); MEAN CORPUSCULAR HEMOGLOBIN 30.9 pg (28.0-32.0); MEAN CORPUSCULAR VOLUME 91.6 fL (80.0-94.0); MEAN PLATELET VOLUME 7.3 fl (7.4-10.4); MONOCYTES % 8.1 % (2.0-8.0); NEUTROPHILS % 76.6 % (40.0-76.0); PLATELET 263 x1000/uL (130-400); RED BLOOD CELL COUNT 2.71 mill/uL (4.7-6.1); RED CELL DISTRIBUTION WIDTH 17.5 % (11.6-14.6)
[2017-05-23 08:00] VITALS: BP 162/89
[2017-05-23 08:09] LABS: PHOSPHORUS 4.1 mg/dL (2.5-4.9)
[2017-05-23] MEDS: GABAPENTIN 100MG CAPSULE PO SCH (08:24)
[2017-05-23] MEDS: CITRIC ACID/SODIUM CITRATE SOLN 15ML UDC PO SCH ×2 (08:24→12:56)
[2017-05-23] MEDS: FERROUS SULFATE 325MG TABLET PO SCH ×2 (08:24→12:56)
[2017-05-23] MEDS: BACLOFEN 10MG TABLET PO SCH (08:25)
[2017-05-23] MEDS: FAMOTIDINE 20MG TABLET PO SCH (08:25)
[2017-05-23 12:00] VITALS: BP 135/87
[2017-05-23 13:49] VITALS: BP 135/87
[2017-05-23] MEDS ORDERED: EPOETIN ALFA 10000UNITS/ML VIAL SUBCUT NR (15:00)
== END 2017-05-23 16:55 | DRG 811 ==
LOC: 8WST 12:51 → OBSVTOIN 12:51
PROVIDERS: ADMIT Internal Medicine; ATTEND Internal Medicine
PROC: 30233N1 Transfusion of Nonautologous Red Blood Cells into Peripheral Vein, Percutaneous Approach (ICD-10-PCS; principal; 2017-05-18)
DX: D50.0 Iron deficiency anemia secondary to blood loss (chronic) (principal); E43 Unspecified severe protein-calorie malnutrition; E11.22 Type 2 diabetes mellitus with diabetic chronic kidney disease; K76.6 Portal hypertension; N18.4 Chronic kidney disease, stage 4 (severe); Z68.1 Body mass index [BMI] 19.9 or less, adult; E11.40 Type 2 diabetes mellitus with diabetic neuropathy, unspecified; E11.51 Type 2 diabetes mellitus with diabetic peripheral angiopathy without gangrene; F41.1 Generalized anxiety disorder; K74.60 Unspecified cirrhosis of liver; N21.0 Calculus in bladder; F41.0 Panic disorder [episodic paroxysmal anxiety]; I12.9 Hypertensive chronic kidney disease with stage 1 through stage 4 chronic kidney disease, or unspecified chronic kidney disease; E78.5 Hyperlipidemia, unspecified; Z79.899 Other long term (current) drug therapy; Z89.511 Acquired absence of right leg below knee; Z89.512 Acquired absence of left leg below knee
CPT/HCPCS: 36415; 70260; 71010; 73030; 74176; 76770; 80048; 80053; 80061; 80069; 80076; 80305; 81001; 82140; 82248; 82330; 82962; 83036; 83540; 83550; 83735; 84100; 84550; 85014; 85018; 85025; 85651; 86850; 86900; 86920; 87086; 93005; J0885; J1815; J1940; J7030; J7040; P9016